=== PATIENT | male | born 1970 | race Caucasian/White ===

== ENCOUNTER 2017-11-24 06:30 | Emergency (ER) | payer MEDICAID ==
[~2017-11-24] VITALS: Ht 177.8 cm; Wt 94.3 kg
[2017-11-24 06:36] VITALS: BP 127/82
--- NOTE | 2017-11-24 06:36 | NUR ---
TO ER BED 1
--- NOTE | 2017-11-24 07:20 | NUR ---
patient is a 47 year-old male who was brought in for c/o right shoulder pain beginning last night. patient is alert and oriented. respirations are even and unlabored. patient denies ay cough, dyspnea, fever, chills, headache, vomiting or diarrhea. per patient no recent fall or inury to right shoulder. no abnormalities observed to right shoulder area. skin is w,d,i. awaiting md er evaluation. will continue to monitor.
--- NOTE | 2017-11-24 07:50 | NUR ---
Dr. Malin at bedside for examination.
--- NOTE | 2017-11-24 08:10 | NUR ---
patient is resting comfortably. wakens easily. respirations are even and unlabored. vss. will continue to monitor.
--- NOTE | 2017-11-24 08:15 | NUR ---
xray at bedside.
[2017-11-24 08:48] LABS: APPEARANCE,URINE CLEAR (CLEAR); BILIRUBIN,URINE NEGATIVE (NEGATIVE); BLOOD, URINE NEGATIVE (NEGATIVE); COLOR,URINE YELLOW (YELLOW); LEUKOCYTE ESTERASE ,URINE NEGATIVE (NEGATIVE); NITRITE, URINE NEGATIVE (NEGATIVE); PH,URINE 5.5 (5.0-9.0); UGLUCOSE NEGATIVE (NEGATIVE)
[2017-11-24] MEDS ORDERED: KETOROLAC 30 MG/ML VIAL IM ONE (08:50)
[2017-11-24 09:02] LABS: BARBITURATE, URINE NEG. ng/ml (NEG <=200); BENZODIAZEPINE, URINE NEG. ng/mL (NEG <=200); CANNABINOID, URINE NEG. ng/mL (NEG <=50); COCAINE, URINE NEG. ng/mL (NEG <=300); OPIATE, URINE NEG. ng/mL (NEG <=2000); PHENCYCLIDINE SCREEN,URINE NEG. ng/mL (NEG <=25)
[2017-11-24] MEDS ORDERED: ONDANSETRON 4 MG ODT PO ONE (09:55)
[2017-11-24 10:22] VITALS: BP 142/89
--- NOTE | 2017-11-24 10:22 | NUR ---
Patient discharged with v/s stable. Written and verbal after care instructions given and explained. Patient alert, oriented and verbalized understanding of instructions. Ambulatory with steady gait. All questions addressed prior to discharge. ID band removed. Patient advised to follow up with PMD. Rx of IBUPROFEN 600MG TAB & FLEXERIL 10MG TAB given. Patient educated on indication of medication including possible reaction and side effects. Opportunity to ask questions provided and answered.
== END 2017-11-24 10:22 | disposition home or self-care (01) ==
LOC: MED 06:30
DX: M25.511 Pain in right shoulder (principal)
CPT/HCPCS: 71045; 73030; 80305; 81003; 96372; 99285; J1885; Q0092; S0119

== ENCOUNTER 2018-01-19 05:00 | Emergency (ER) | payer MEDICAID ==
[~2018-01-19] VITALS: Ht 175.3 cm; Wt 86.2 kg
[2018-01-19 05:04] VITALS: BP 132/87
--- NOTE | 2018-01-19 05:20 | NUR ---
Pt ambulated to bed 10
--- NOTE | 2018-01-19 05:54 | NUR ---
47 Y/M C/O WEAKNESS, SOB, AND NAUSEA X3 HOURS. PT C/O S/S AT REST, RR EVEN, UNLABORED, SHALLOW, BL BS CLEAR THROUGHOUT. PT IS AA&OX4, BL EYES REDDENED TO SCLERA, PT ADMITS TO DRINKING ALCOHOL YESTERDAY [place] JUST STATES "TOO MUCH BUT ONLY BEER". ABD IS ROUND,SOFT, NON TENDER, ACTIVE BS X4. PT STATES THAT HE HAS FELT LIKE THIS BEFORE W/ ANXIETY ATTACKS. PMH HTN , ANXIETY
[2018-01-19 06:01] LABS: BASOPHILS % (AUTO) 0.9 % (0.0-2.0); EOSINOPHILS # (AUTO) 0.5 K/uL (0-0.4); EOSINOPHILS % (AUTO) 8.6 % (0.0-4.0); HEMATOCRIT 43.4 % (36-52); HEMOGLOBIN 14.7 g/dL (12.0-18.0); LYMPHOCYTES # (AUTO) 1.9 K/uL (2.0-11.5); LYMPHOCYTES % (AUTO) 33.2 % (20.5-51.1); MEAN CORPUSCULAR HEMOGLOBIN 29 pg (27-31); MEAN CORPUSCULAR HGB CONC 34 g/dL (33-37); MEAN CORPUSCULAR VOLUME 85.5 fL (80-94); MONOCYTES # (AUTO) 0.4 K/uL (0.8-1.0); MONOCYTES % (AUTO) 7.5 % (1.7-9.3); NEUTROPHILS # (AUTO) 2.9 K/uL (1.8-7.7); NEUTROPHILS % (AUTO) 49.8 % (42.2-75.2); PLATELET COUNT (AUTO) 205 K/uL (140-450); RED BLOOD CELL COUNT(AUTO) 5.08 MIL/uL (4.20-6.10); RED CELL DISTRIBUTION WIDTH 13.9 % (11.6-13.7); WHITE BLOOD COUNT (AUTO) 5.7 K/uL (4.8-10.8)
--- NOTE | 2018-01-19 06:08 | NUR ---
PT RESTING IN BED, PROVIDED W/ WATER, COMFORT NEEDS MET AT THIS TIME, VSS, WILL CONTINUE TO MONITOR.
[2018-01-19 06:12] LABS: APPEARANCE,URINE CLEAR (CLEAR); BILIRUBIN,URINE NEGATIVE (NEGATIVE); BLOOD, URINE NEGATIVE (NEGATIVE); COLOR,URINE YELLOW (YELLOW); LEUKOCYTE ESTERASE ,URINE NEGATIVE (NEGATIVE); NITRITE, URINE NEGATIVE (NEGATIVE); PH,URINE 5.5 (5.0-9.0); UGLUCOSE NEGATIVE (NEGATIVE)
[2018-01-19 06:26] LABS: POTASSIUM 3.4 mmol/L (3.5-5.1)
[2018-01-19 06:27] LABS: CARBON DIOXIDE 24.4 mmol/L (21-32); CREATININE 0.6 mg/dL (0.7-1.3)
[2018-01-19 06:35] LABS: TOTAL BILIRUBIN 0.2 mg/dL (0.0-1.0)
[2018-01-19 06:36] LABS: ALBUMIN 3.9 g/dL (3.4-5.0)
--- NOTE | 2018-01-19 07:02 | NUR ---
Pt report given to SHASTA. Transfer of care at this time.
[2018-01-19] MEDS ORDERED: ONDANSETRON 4 MG/2 ML VIAL ONE (07:29)
[2018-01-19] MEDS ORDERED: ONDANSETRON 4 MG/2 ML VIAL IVP ONE ×2 (07:35→09:35)
[2018-01-19] MEDS ORDERED: NACL 0.9% 1,000 ML IV ONE (07:35)
[2018-01-19 07:57] LABS: BARBITURATE, URINE NEG ng/ml (NEG <=200); BENZODIAZEPINE, URINE NEG ng/mL (NEG <=200); CANNABINOID, URINE NEG ng/mL (NEG <=50); COCAINE, URINE NEG ng/mL (NEG <=300); OPIATE, URINE NEG ng/mL (NEG <=2000); PHENCYCLIDINE SCREEN,URINE NEG ng/mL (NEG <=25)
[2018-01-19] MEDS ORDERED: LORazepam 2 MG/ML VIAL IVP ONE (09:20)
[2018-01-19 09:54] VITALS: BP 129/90
--- NOTE | 2018-01-19 09:55 | NUR ---
Patient discharged with v/s stable. Written and verbal after care instructions given and explained. Patient verbalized understanding. Ambulatory with steady gait. All questions addressed prior to discharge. Advised to follow up with PMD.
== END 2018-01-19 09:55 | disposition home or self-care (01) ==
LOC: MED 05:00
DX: F10.229 Alcohol dependence with intoxication, unspecified (principal); E87.6 Hypokalemia; E86.0 Dehydration; R42 Dizziness and giddiness; R53.1 Weakness; I10 Essential (primary) hypertension; F41.9 Anxiety disorder, unspecified
CPT/HCPCS: 36415; 80053; 80305; 81003; 85025; 96361; 96374; 96375; 96376; 99284; G0482; J2060; J2405; J7030

== ENCOUNTER 2018-02-22 09:27 | Emergency (ER) | payer MEDICAID ==
[~2018-02-22] VITALS: Ht 172.7 cm; Wt 92.1 kg
[2018-02-22 09:36] VITALS: BP 119/83
--- NOTE | 2018-02-22 09:40 | NUR ---
gave report to Janis AGUILERA
--- NOTE | 2018-02-22 09:45 | NUR ---
PATIENT AMBULATED TO BED 2.
[2018-02-22] MEDS ORDERED: MULTIVITAMIN-12 10 ML, THIAMINE 100 MG, MAGNESIUM SULFATE 50% 2,000 MG, FOLIC ACID 5 MG... IV ONE ×5 (09:50)
[2018-02-22] MEDS ORDERED: NACL 0.9% 1,000 ML IV ONE ×2 (09:50→10:35)
[2018-02-22] MEDS ORDERED: LORazepam 1 MG TAB PO ONE (09:50)
[2018-02-22] MEDS ORDERED: ONDANSETRON 4 MG/2 ML VIAL IVP ONE (09:50)
--- NOTE | 2018-02-22 09:50 | NUR ---
PT. CAME INTO THE ED W/ C/O WEAKNESS AND NAUSEA X 3 HRS. PT. IS AAOX4 . PT. RR EVEN AND UNLABORED. DENIES VOMITING AND DIAHRRHEA BUT DOES COMPLAIN OF NAUSEA X3 HOURS. PT STATES " I DRANK 15 BEERS LAST NIGHT AND THIS MORNING I WOKE UP FEELING WEAK AND NAUSEOUS" PT. DENIES ANY CHEST PAIN OR SOB AT THIS TIME. PT. DOES NOT HAVE ANY PAIN AT THIS TIME. PT. STATES " I FEEL HEART PALPITATIONS". VS ASSESSED AND STABLE, REFER TO VITALS. Soy MONTELONGO NOTIFIED. WILL CONTINUE TO MONITOR.
[2018-02-22] MEDS ORDERED: MULTIVITAMIN-12 10 ML, THIAMINE 100 MG, MAGNESIUM SULFATE 50% 2,000 MG, FOLIC ACID 5 MG... IV SCH ×5 (09:52)
[2018-02-22] MEDS ORDERED: FAMOTIDINE 20 MG/2 ML VIAL IVP ONE (09:55)
[2018-02-22 10:09] LABS: BASOPHILS # (AUTO) 0.1 K/uL (0.00-0.22); BASOPHILS % (AUTO) 1.1 % (0.0-2.0); EOSINOPHILS # (AUTO) 0.4 K/uL (0-0.4); EOSINOPHILS % (AUTO) 7.5 % (0.0-4.0); HEMATOCRIT 42.7 % (36-52); HEMOGLOBIN 14.5 g/dL (12.0-18.0); LYMPHOCYTES # (AUTO) 1.6 K/uL (2.0-11.5); MEAN CORPUSCULAR HEMOGLOBIN 29 pg (27-31); MEAN CORPUSCULAR HGB CONC 34 g/dL (33-37); MEAN CORPUSCULAR VOLUME 85.5 fL (80-94); MONOCYTES # (AUTO) 0.5 K/uL (0.8-1.0); MONOCYTES % (AUTO) 8.2 % (1.7-9.3); NEUTROPHILS # (AUTO) 3.1 K/uL (1.8-7.7); NEUTROPHILS % (AUTO) 55.2 % (42.2-75.2); PLATELET COUNT (AUTO) 180 K/uL (140-450); RED BLOOD CELL COUNT(AUTO) 4.99 MIL/uL (4.20-6.10); RED CELL DISTRIBUTION WIDTH 13.7 % (11.6-13.7); WHITE BLOOD COUNT (AUTO) 5.5 K/uL (4.8-10.8)
[2018-02-22 10:19] LABS: ANION GAP 13.2 (8-16); CARBON DIOXIDE 25.4 mmol/L (21-32); CREATININE 0.6 mg/dL (0.7-1.3); POTASSIUM 3.6 mmol/L (3.5-5.1)
[2018-02-22 10:25] LABS: ALBUMIN 3.9 g/dL (3.4-5.0); TOTAL BILIRUBIN 0.3 mg/dL (0.0-1.0)
--- NOTE | 2018-02-22 10:57 | NUR ---
PT. RESTING COMFORTABLY IN BED , RR EVEN AND UNLABORED, VSS. BED IN LOWEST POSITION WILL CONTINUE TO MONITOR.
--- NOTE | 2018-02-22 11:57 | NUR ---
PT. AMBULATED TO RESTROOM, STEADY GAIT, RR EVEN AND UNLABORED. PT. STATES " I FEEL BETTER NOW". WILL CONTINUE TO MONITOR.
[2018-02-22 12:06] VITALS: BP 111/74
== END 2018-02-22 12:06 | disposition home or self-care (01) ==
LOC: MED 09:27
DX: F10.129 Alcohol abuse with intoxication, unspecified (principal); I10 Essential (primary) hypertension; Y90.3 Blood alcohol level of 60-79 mg/100 ml
CPT/HCPCS: 36415; 80053; 81002; 83690; 84484; 85025; 93005; 96361; 96365; 96375; 99285; A9153; G0482; J2405; J3411; J3475; J3490; J7030

== ENCOUNTER 2018-03-08 08:04 | Emergency (ER) | payer MEDICAID ==
[~2018-03-08] VITALS: Ht 177.8 cm; Wt 86.2 kg
[2018-03-08 08:12] VITALS: BP 126/91
--- NOTE | 2018-03-08 08:12 | NUR ---
PT AMBULATED TO BED 7
--- NOTE | 2018-03-08 08:15 | NUR ---
47 /M BIB SELF FOR LEFT UPPER CHEST PAIN S/P DRINKING X YESTERDAY. DENIES N/V/D; SKIN IS PINK/WARM/DRY; AAOX4 WITH EVEN AND STEADY GAIT; LUNGS CLEAR BL. PT DENIES ANY FEVER OR COUGH AT THIS TIME; PATIENT STATES PAIN OF 7/10 AT THIS TIME. PATIENT POSITIONED FOR COMFORT; HOB ELEVATED; BEDRAILS UP X2; BED DOWN. ER MD MADE AWARE OF PT STATUS.
--- NOTE | 2018-03-08 08:23 | NUR ---
EKG AT BEDSIDE
--- NOTE | 2018-03-08 08:23 | NUR ---
Patient being evaluated by DR OLEA at bedside.
[2018-03-08] MEDS ORDERED: NACL 0.9% 1,000 ML IV SCH (08:30)
[2018-03-08] MEDS ORDERED: GLYCOPYRROLATE 0.2 MG/ML VIAL IV ONE (08:30)
[2018-03-08] MEDS ORDERED: FAMOTIDINE 20 MG/2 ML VIAL IVP ONE (08:30)
[2018-03-08] MEDS ORDERED: METOCLOPRAMIDE 10 MG/2 ML INJ VIAL IVP ONE (08:30)
[2018-03-08] MEDS ORDERED: diphenhydrAMINE 50 MG/ML VIAL IVP ONE (08:30)
[2018-03-08 08:58] LABS: BASOPHILS # (AUTO) 0.1 K/uL (0.00-0.22); EOSINOPHILS # (AUTO) 0.4 K/uL (0-0.4); EOSINOPHILS % (AUTO) 7.5 % (0.0-4.0); HEMATOCRIT 42.3 % (36-52); HEMOGLOBIN 14.8 g/dL (12.0-18.0); LYMPHOCYTES # (AUTO) 1.6 K/uL (2.0-11.5); LYMPHOCYTES % (AUTO) 30.2 % (20.5-51.1); MEAN CORPUSCULAR HEMOGLOBIN 29 pg (27-31); MEAN CORPUSCULAR HGB CONC 35 g/dL (33-37); MEAN CORPUSCULAR VOLUME 83.1 fL (80-94); MONOCYTES # (AUTO) 0.6 K/uL (0.8-1.0); MONOCYTES % (AUTO) 10.6 % (1.7-9.3); NEUTROPHILS # (AUTO) 2.7 K/uL (1.8-7.7); NEUTROPHILS % (AUTO) 50.7 % (42.2-75.2); PLATELET COUNT (AUTO) 182 K/uL (140-450); RED BLOOD CELL COUNT(AUTO) 5.09 MIL/uL (4.20-6.10); RED CELL DISTRIBUTION WIDTH 13.7 % (11.6-13.7); WHITE BLOOD COUNT (AUTO) 5.3 K/uL (4.8-10.8)
[2018-03-08 09:00] LABS: APPEARANCE,URINE CLEAR (CLEAR); BILIRUBIN,URINE NEGATIVE (NEGATIVE); BLOOD, URINE NEGATIVE (NEGATIVE); COLOR,URINE YELLOW (YELLOW); LEUKOCYTE ESTERASE ,URINE NEGATIVE (NEGATIVE); NITRITE, URINE NEGATIVE (NEGATIVE); UGLUCOSE NEGATIVE (NEGATIVE)
[2018-03-08 09:06] LABS: BARBITURATE, URINE NEG. ng/ml (NEG <=200); BENZODIAZEPINE, URINE NEG. ng/mL (NEG <=200); CANNABINOID, URINE NEG. ng/mL (NEG <=50); COCAINE, URINE NEG. ng/mL (NEG <=300); OPIATE, URINE NEG. ng/mL (NEG <=2000); PHENCYCLIDINE SCREEN,URINE NEG. ng/mL (NEG <=25)
--- NOTE | 2018-03-08 09:07 | NUR ---
Patient appears to be resting comfortably in bed. BP128/96, Respirations even and unlabored.WILL CONTINUE TO MONITOR Addendum: 03/08/18 at 0927 by [email or web address] DENIES CHEST PAIN AT THIS TIME.
[2018-03-08 09:08] LABS: ANION GAP 14.3 (8-16); CARBON DIOXIDE 26.3 mmol/L (21-32); CREATININE 0.7 mg/dL (0.7-1.3); POTASSIUM 3.6 mmol/L (3.5-5.1)
[2018-03-08 09:09] LABS: AMYLASE 54 U/L (25-115); LIPASE 165 U/L (73-393)
[2018-03-08 09:14] LABS: ALBUMIN 3.9 g/dL (3.4-5.0); TOTAL BILIRUBIN 0.3 mg/dL (0.0-1.0)
--- NOTE | 2018-03-08 09:50 | NUR ---
Patient being reevaluated by DR OLEA at bedside.
[2018-03-08 10:52] VITALS: BP 120/90
--- NOTE | 2018-03-08 10:52 | NUR ---
Patient discharged with v/s stable. Written and verbal after care instructions given and explained. Patient alert, oriented and verbalized understanding of instructions. Ambulatory with steady gait. All questions addressed prior to discharge. ID band removed. Patient advised to follow up with PMD. Rx of vistaril given. Patient educated on indication of medication including possible reaction and side effects. Opportunity to ask questions provided and answered.
== END 2018-03-08 10:52 | disposition home or self-care (01) ==
LOC: MED 08:04
DX: F10.129 Alcohol abuse with intoxication, unspecified (principal); I10 Essential (primary) hypertension; F41.9 Anxiety disorder, unspecified; F17.200 Nicotine dependence, unspecified, uncomplicated
CPT/HCPCS: 36415; 71045; 80053; 80305; 81003; 82150; 83690; 84484; 85025; 93005; 96374; 96375; 99285; G0482; J1200; J2765; J3490; J7030

== ENCOUNTER 2018-04-12 09:26 | Emergency (ER) | payer MEDICAID ==
[~2018-04-12] VITALS: Ht 175.3 cm; Wt 79.4 kg
[2018-04-12 09:35] VITALS: BP 152/88
--- NOTE | 2018-04-12 09:35 | NUR ---
Patient ambulated to bed 8. RN evaluating patient at bedside.
--- NOTE | 2018-04-12 09:45 | NUR ---
PATIENT PRESENTS TO ED WITH THROAT PAIN AND ANXIETY X THIS AM . PT STATES HE DRANK 20 BEERS LAST NIGHT---FULL CLEAR SPEECH, AMBULATORY WITH STEADY GAIT, NO TREMORS NOTED---DENIES VISUAL/AUDITORY HALLUCINATION . DENIES N/V/D; SKIN IS PINK/WARM/DRY; AAOX4 WITH EVEN AND STEADY GAIT; LUNGS CLEAR BL; HR EVEN AND REGULAR; PT DENIES ANY FEVER, CP, SOB, OR COUGH AT THIS TIME; PATIENT STATES PAIN OF 8/10 AT THIS TIME; VSS; PATIENT POSITIONED FOR COMFORT; HOB ELEVATED; BEDRAILS UP X2; BED DOWN. ER MD MADE AWARE OF PT STATUS.
--- NOTE | 2018-04-12 09:52 | NUR ---
Dr. Ness evaluating patient at bedside.
--- NOTE | 2018-04-12 10:00 | NUR ---
RESTING WITH OU CLOSED, NO S/S RESP DISTRESS NOTED AT THIS TIME; NO ACCESSORY MUSCLE USE NOTED NO GRIMACE NO MOAN
[2018-04-12] MEDS ORDERED: FAMOTIDINE 20 MG/2 ML VIAL IVP ONE (10:10)
[2018-04-12] MEDS ORDERED: diphenhydrAMINE 50 MG/ML VIAL IVP ONE (10:10)
[2018-04-12] MEDS ORDERED: PROMETHAZINE 25 MG/ML VIAL IM ONE (10:10)
[2018-04-12] MEDS ORDERED: NACL 0.9% 1,000 ML IV ONE (11:10)
[2018-04-12 11:27] LABS: WHITE BLOOD COUNT (AUTO) 4.7 K/uL (4.8-10.8)
[2018-04-12 11:28] LABS: BASOPHILS % (AUTO) 3.5 % (0.0-2.0); HEMATOCRIT 44.1 % (36-52); HEMOGLOBIN 14.7 g/dL (12.0-18.0); MEAN CORPUSCULAR HEMOGLOBIN 29 pg (27-31); MEAN CORPUSCULAR HGB CONC 33 g/dL (33-37); NEUTROPHILS % (AUTO) 51.6 % (42.2-75.2); PLATELET COUNT (AUTO) 192 K/uL (140-450); RED BLOOD CELL COUNT(AUTO) 5.13 MIL/uL (4.20-6.10); RED CELL DISTRIBUTION WIDTH 12.7 % (11.6-13.7)
[2018-04-12 11:29] LABS: BASOPHILS # (AUTO) 3.5 K/uL (0.00-0.22); EOSINOPHILS # (AUTO) 0.3 K/uL (0-0.4); LYMPHOCYTES # (AUTO) 1.4 K/uL (2.0-11.5); LYMPHOCYTES % (AUTO) 29.5 % (20.5-51.1); MONOCYTES # (AUTO) 0.4 K/uL (0.8-1.0); MONOCYTES % (AUTO) 9.4 % (1.7-9.3); NEUTROPHILS # (AUTO) 2.4 K/uL (1.8-7.7)
[2018-04-12 11:39] LABS: ALBUMIN 4.2 g/dL (3.4-5.0); ANION GAP 11.1 (8-16); CARBON DIOXIDE 25.8 mmol/L (21-32); CREATININE 0.8 mg/dL (0.7-1.3); POTASSIUM 3.9 mmol/L (3.5-5.1); TOTAL BILIRUBIN 0.3 mg/dL (0.0-1.0)
--- NOTE | 2018-04-12 12:00 | NUR ---
UP TO RESTROOM STEADY GAIT--DENIES PAIN ADMITS FEELING LESS ANXIOUS
[2018-04-12 12:01] LABS: CKMB RELATIVE INDEX 0.7 (0.0-2.5); CREATINE KINASE MB 2.4 ng/mL (0-3.6)
--- NOTE | 2018-04-12 13:20 | NUR ---
LAYING ON LEFT SIDE WITH BLANKET OVER UP TO SHOULDERS---V/S/S NO ACCESSORY MUSCLE USE NO GRIMACE NO MOAN--- AWAITS DISPO
[2018-04-12 14:02] LABS: APPEARANCE,URINE CLEAR (CLEAR); BILIRUBIN,URINE NEGATIVE (NEGATIVE); BLOOD, URINE NEGATIVE (NEGATIVE); COLOR,URINE YELLOW (YELLOW); LEUKOCYTE ESTERASE ,URINE NEGATIVE (NEGATIVE); NITRITE, URINE NEGATIVE (NEGATIVE); UGLUCOSE NEGATIVE (NEGATIVE)
[2018-04-12 14:15] LABS: BARBITURATE, URINE NEG. ng/ml (NEG <=200); BENZODIAZEPINE, URINE NEG. ng/mL (NEG <=200); CANNABINOID, URINE NEG. ng/mL (NEG <=50); COCAINE, URINE NEG. ng/mL (NEG <=300); OPIATE, URINE NEG. ng/mL (NEG <=2000); PHENCYCLIDINE SCREEN,URINE NEG. ng/mL (NEG <=25)
[2018-04-12 14:49] VITALS: BP 138/71
== END 2018-04-12 14:52 | disposition home or self-care (01) ==
LOC: MED 09:26
DX: F10.229 Alcohol dependence with intoxication, unspecified (principal); K29.20 Alcoholic gastritis without bleeding; Y90.9 Presence of alcohol in blood, level not specified; I10 Essential (primary) hypertension
CPT/HCPCS: 36415; 80053; 80305; 81003; 82550; 82553; 85025; 96361; 96372; 96374; 96375; 99284; G0482; J1200; J2550; J3490

== ENCOUNTER 2018-05-25 05:55 | Emergency (ER) | payer MEDICAID ==
[~2018-05-25] VITALS: Ht 175.3 cm; Wt 90.7 kg
[2018-05-25 06:00] VITALS: BP 141/98
--- NOTE | 2018-05-25 06:00 | NUR ---
PT PRESENTS TO ED WITH NAUSEA AND ETOH. PT STATES AROLDO-DRINKING X2 DAYS. PT SMELLS OF LIQUOR AND BEER. A&OX4. VSS. PT BROUGHT HIMSELF TO ED. HE HAD FAMILY DRIVE HIM. POSITIONED IN BED FOR COMFORT. SIDE RAILS UP X2. FALL RISK INITIATED WITH BAND. ER MD AWARE. CONTINUE TO MONITOR.
--- NOTE | 2018-05-25 06:00 | NUR ---
PATIENT TO ER BED 8.
[2018-05-25 07:03] VITALS: BP 141/98
== END 2018-05-25 07:03 | disposition home or self-care (01) ==
LOC: MED 05:55
DX: F10.129 Alcohol abuse with intoxication, unspecified (principal); F41.9 Anxiety disorder, unspecified; R53.1 Weakness; R42 Dizziness and giddiness; E11.9 Type 2 diabetes mellitus without complications; I10 Essential (primary) hypertension
CPT/HCPCS: 99283

== ENCOUNTER 2018-06-21 12:53 | Emergency (ER) | payer MEDICAID ==
[~2018-06-21] VITALS: Ht 175.3 cm; Wt 90.9 kg
[2018-06-21 13:03] VITALS: BP 124/100
[2018-06-21] MEDS ORDERED: NACL 0.9% 1,000 ML IV ONE ×2 (13:43→13:50)
[2018-06-21] MEDS ORDERED: PROMETHAZINE 25 MG/ML VIAL IM ONE (13:45)
[2018-06-21 14:26] LABS: BASOPHILS % (AUTO) 0.4 % (0.0-2.0); EOSINOPHILS # (AUTO) 0.2 K/uL (0-0.4); EOSINOPHILS % (AUTO) 2.4 % (0.0-4.0); HEMATOCRIT 44.4 % (36-52); HEMOGLOBIN 15.1 g/dL (12.0-18.0); LYMPHOCYTES # (AUTO) 0.7 K/uL (2.0-11.5); LYMPHOCYTES % (AUTO) 7.3 % (20.5-51.1); MEAN CORPUSCULAR HEMOGLOBIN 29 pg (27-31); MEAN CORPUSCULAR HGB CONC 34 g/dL (33-37); MONOCYTES # (AUTO) 0.5 K/uL (0.8-1.0); MONOCYTES % (AUTO) 5.6 % (1.7-9.3); NEUTROPHILS # (AUTO) 7.7 K/uL (1.8-7.7); NEUTROPHILS % (AUTO) 84.3 % (42.2-75.2); PLATELET COUNT (AUTO) 199 K/uL (140-450); RED BLOOD CELL COUNT(AUTO) 5.16 MIL/uL (4.20-6.10); RED CELL DISTRIBUTION WIDTH 13.8 % (11.6-13.7); WHITE BLOOD COUNT (AUTO) 9.2 K/uL (4.8-10.8)
[2018-06-21 14:41] LABS: ANION GAP 11.8 (8-16); CARBON DIOXIDE 27.8 mmol/L (21-32); CREATININE 0.7 mg/dL (0.7-1.3); POTASSIUM 3.6 mmol/L (3.5-5.1)
[2018-06-21 14:46] LABS: ALBUMIN 4.2 g/dL (3.4-5.0); TOTAL BILIRUBIN 0.4 mg/dL (0.0-1.0)
[2018-06-21 14:52] LABS: APPEARANCE,URINE CLEAR (CLEAR); BILIRUBIN,URINE NEGATIVE (NEGATIVE); BLOOD, URINE TRACE-I (NEGATIVE); COLOR,URINE YELLOW (YELLOW); LEUKOCYTE ESTERASE ,URINE NEGATIVE (NEGATIVE); NITRITE, URINE NEGATIVE (NEGATIVE); UGLUCOSE NEGATIVE (NEGATIVE)
[2018-06-21 15:02] LABS: BARBITURATE, URINE NEG. ng/ml (NEG <=200); BENZODIAZEPINE, URINE NEG. ng/mL (NEG <=200); CANNABINOID, URINE NEG. ng/mL (NEG <=50); COCAINE, URINE NEG. ng/mL (NEG <=300); OPIATE, URINE NEG. ng/mL (NEG <=2000); PHENCYCLIDINE SCREEN,URINE NEG. ng/mL (NEG <=25)
[2018-06-21] MEDS ORDERED: ONDANSETRON 4 MG ODT ONE (15:12)
[2018-06-21 15:57] VITALS: BP 117/89
== END 2018-06-21 15:55 | disposition home or self-care (01) ==
LOC: MED 12:53
DX: F10.10 Alcohol abuse, uncomplicated (principal); E11.9 Type 2 diabetes mellitus without complications; I10 Essential (primary) hypertension
CPT/HCPCS: 36415; 71045; 80053; 80305; 81003; 85025; 96360; 96361; 96372; 99285; G0482; J2550; J7030; Q0092; S0119

== ENCOUNTER 2018-10-05 05:35 | Emergency (ER) | payer MEDICAID ==
[~2018-10-05] VITALS: Ht 175.3 cm; Wt 90.7 kg
[2018-10-05 05:41] VITALS: BP 132/80
--- NOTE | 2018-10-05 05:41 | NUR ---
TO BED # 7 AMBULATORY, REPORT GIVEN TO CYNDEE AGUILERA
--- NOTE | 2018-10-05 05:50 | NUR ---
47/M PRESENTS TO ED, C/O CHEST TIGHTNESS/PALPITATIONS, WEAKNESS, DIZZINESS, NAUSEA, REPORTED SOB, SINCE THIS AM. PT STATED THAT HE HAS BEEN BINGE DRINKING (20 BEERS/DAY) THIS SAT AND SUN, LAST DRINK 8 HRS AGO. PT AOX4, GCS 15, RR EVEN AND UNLABORED. LUNG SOUNDS CLEAR BL. BS ACTIVE X4, ABD SOFT ROUND SLIGHT DIFFUSE TENDERNESS. HX HTN, ETOH ABUSE RX METOPROLOL, ATIVAN
--- NOTE | 2018-10-05 05:52 | NUR ---
Dr. Little evaluating patient at bedside.
[2018-10-05] MEDS ORDERED: KETOROLAC 30 MG/ML VIAL IVP ONE (05:55)
[2018-10-05] MEDS ORDERED: NACL 0.9% 1,000 ML IV ONE (05:55)
--- NOTE | 2018-10-05 06:01 | NUR ---
EKG PERFORMED AT BEDSIDE WITH RN PRESENT. PT COVERED IN GOWN DURING PROCEDURE
--- NOTE | 2018-10-05 06:05 | NUR ---
X-Ray at bedside.
[2018-10-05 06:27] LABS: BASOPHILS # (AUTO) 0.1 K/uL (0.00-0.22); BASOPHILS % (AUTO) 0.9 % (0.0-2.0); EOSINOPHILS # (AUTO) 0.3 K/uL (0-0.4); EOSINOPHILS % (AUTO) 5.5 % (0.0-4.0); HEMATOCRIT 43.3 % (36-52); HEMOGLOBIN 14.5 g/dL (12.0-18.0); LYMPHOCYTES # (AUTO) 1.6 K/uL (2.0-11.5); LYMPHOCYTES % (AUTO) 28.3 % (20.5-51.1); MEAN CORPUSCULAR HEMOGLOBIN 28 pg (27-31); MEAN CORPUSCULAR HGB CONC 33 g/dL (33-37); MEAN CORPUSCULAR VOLUME 85.1 fL (80-94); MONOCYTES # (AUTO) 0.5 K/uL (0.8-1.0); NEUTROPHILS # (AUTO) 3.1 K/uL (1.8-7.7); NEUTROPHILS % (AUTO) 56.3 % (42.2-75.2); PLATELET COUNT (AUTO) 220 K/uL (140-450); RED BLOOD CELL COUNT(AUTO) 5.08 MIL/uL (4.20-6.10); RED CELL DISTRIBUTION WIDTH 13.4 % (11.6-13.7); WHITE BLOOD COUNT (AUTO) 5.5 K/uL (4.8-10.8)
[2018-10-05 06:51] LABS: ANION GAP 14.2 (8-16); CARBON DIOXIDE 28.2 mmol/L (21-32); CREATININE 0.6 mg/dL (0.7-1.3); POTASSIUM 3.4 mmol/L (3.5-5.1); TOTAL BILIRUBIN 0.3 mg/dL (0.0-1.0)
[2018-10-05 06:52] LABS: ALBUMIN 3.9 g/dL (3.4-5.0)
[2018-10-05] MEDS ORDERED: LORazepam 1 MG TAB PO ONE (07:00)
--- NOTE | 2018-10-05 07:14 | NUR ---
Pt report given to WILLY HUTTON. Transfer of care at this time.
--- NOTE | 2018-10-05 07:15 | NUR ---
RECEIVED REPORT WILLY COTTER, PATIENT IN RESTROOM.
[2018-10-05 07:34] VITALS: BP 132/80
== END 2018-10-05 07:34 | disposition home or self-care (01) ==
LOC: MED 05:35
DX: R00.2 Palpitations (principal); F10.10 Alcohol abuse, uncomplicated; F41.9 Anxiety disorder, unspecified; E11.9 Type 2 diabetes mellitus without complications; I10 Essential (primary) hypertension
CPT/HCPCS: 36415; 71045; 80053; 84484; 85025; 93005; 96374; 99284; J1885; J7030

== ENCOUNTER 2019-01-04 10:06 | Emergency (ER) | payer MEDICAID ==
[~2019-01-04] VITALS: Ht 180.3 cm; Wt 90.3 kg
[2019-01-04 10:13] VITALS: BP 141/95
--- NOTE | 2019-01-04 13:10 | NUR ---
AMBULATORY WITH STEADY GAIT, C/O ANXIETY, GENERAL MALAISE NO TREMORS NOTED--FULL CLEAR SPEECH
--- NOTE | 2019-01-04 14:29 | NUR ---
PT AMB TO ER CHAIR E
[2019-01-04] MEDS ORDERED: NACL 0.9% 1,000 ML IV SCH (15:04)
[2019-01-04] MEDS ORDERED: ONDANSETRON 4 MG ODT PO ONE (15:35)
--- NOTE | 2019-01-04 15:48 | NUR ---
VSS AT THIS TIME. PT SITTING IN CHAIR. AA0X4.
--- NOTE | 2019-01-04 15:58 | NUR ---
LAB AT BEDSIDE-BLOOD SENT TO LAB
--- NOTE | 2019-01-04 16:30 | NUR ---
PT SITTING IN CHAIR. AA0X4.
[2019-01-04 17:53] VITALS: BP 125/87
== END 2019-01-04 17:53 | disposition home or self-care (01) ==
LOC: MED 10:06
DX: F10.239 Alcohol dependence with withdrawal, unspecified (principal); E11.9 Type 2 diabetes mellitus without complications; I10 Essential (primary) hypertension; F41.9 Anxiety disorder, unspecified; Y90.1 Blood alcohol level of 20-39 mg/100 ml
CPT/HCPCS: 36415; 99283; G0482; J7030; Q0162

== ENCOUNTER 2019-02-15 16:32 | Emergency (ER) | payer MEDICAID ==
[~2019-02-15] VITALS: Ht 180.3 cm; Wt 91.4 kg
[2019-02-15 16:37] VITALS: BP 128/87
--- NOTE | 2019-02-15 16:56 | NUR ---
PT STATES HE HAS BEEN DRINKING "TOO MUCH" FOR 3 DAYS, DENIES DRINKING TODAY, STATES LAST DRINK WAS YESTERDAY AT 14:00. PT BREATH SMELLS OF ALCOHOL. PT REPORTS NAUSEA, DIZINESS, AND CP WITH PALPITATIONS. PT ALSO REPORTS CONGESTION AND CHEST PAIN. DENIES D; AAOX4 WITH EVEN AND STEADY GAIT; HR EVEN AND REGULAR; PT DENIES ANY FEVER, SOB, OR COUGH AT THIS TIME; PATIENT STATES CHEST PAIN AND HEADACHE OF 8/10 AT THIS TIME; VSS; PATIENT POSITIONED FOR COMFORT; HOB ELEVATED; BEDRAILS UP X2; BED DOWN. ER MD MADE AWARE OF PT STATUS.
--- NOTE | 2019-02-15 17:59 | NUR ---
Dr. Lopez evaluating patient at bedside.
[2019-02-15] MEDS ORDERED: NACL 0.9% 1,000 ML IV ONE (18:00)
[2019-02-15] MEDS ORDERED: ONDANSETRON 4 MG/2 ML VIAL IVP ONE (18:00)
[2019-02-15] MEDS ORDERED: LORazepam 2 MG/ML VIAL IVP ONE (18:40)
--- NOTE | 2019-02-15 18:50 | NUR ---
Pt C/O shaking and anxiety and was given Ativan 1 mg IVP. Pt's BP 122/80, HR 74.
--- NOTE | 2019-02-15 19:03 | NUR ---
REPORT RECIEVED AMRIT STRATTON RN
--- NOTE | 2019-02-15 19:03 | NUR ---
PT VSS, BP 122/67, HR 105. PT STATES FEELS MUCH BETTER, NO SHAKING AND AXIETY. REPORT GIVEN TO WILLY PARIS.
--- NOTE | 2019-02-15 19:10 | NUR ---
PT GIVEN URINAL. PT AA0X4.
[2019-02-15] MEDS ORDERED: FOLIC ACID 5 MG, MULTIVITAMIN-12 10 ML, THIAMINE 100 MG, MAGNESIUM SULFATE 50% 2,000 MG... IV ONE ×5 (19:34)
--- NOTE | 2019-02-15 19:44 | NUR ---
PT GIVEN FOLATE AND THIAMINE IM L DELTOID. MAGNESIUM SULFATE RUNNING IV PIGGYBACK WITH NS AT 25 MLS/HR. MVI MIXED IN 1000 ML NS BAG AND TO RUN AT 250 MLS/HR AFTER MAGNESIUM SULFATE FINISHES.
[2019-02-15] MEDS ORDERED: THIAMINE 200 MG/2 ML VIAL ONE (19:49)
[2019-02-15] MEDS ORDERED: MULTIVITAMIN-12 10 ML VIAL IV ONE (19:49)
[2019-02-15] MEDS ORDERED: FOLIC ACID 5 MG/ML SYR ONE ×2 (19:49→19:58)
[2019-02-15] MEDS ORDERED: MAG SULF 2000 MG/WATER PREMIX 50 ML IV ONE (20:00)
--- NOTE | 2019-02-15 21:00 | NUR ---
PT SLEEPING IN BED, AROUSABLE TO NAME.
--- NOTE | 2019-02-15 21:07 | NUR ---
ASSUMED CARE OF PT FROM WILLY PARIS
--- NOTE | 2019-02-15 21:07 | NUR ---
REPORT GIVEN TO LANCE AGUILERA
--- NOTE | 2019-02-15 21:20 | NUR ---
PT VERBALIZING DESIRE TO LEAVE. PT IS ALERT TO NAME, BIRTHDAY, PLACE, AND EVENT. D/C ORDERS RECEIVED.
--- NOTE | 2019-02-15 21:25 | NUR ---
IV removed, catheter intact and site benign. Applied folded 4x4 gauze and tape to stop bleeding.
[2019-02-15 21:30] VITALS: BP 126/84
== END 2019-02-15 21:29 | disposition home or self-care (01) ==
LOC: MED 16:32
DX: F10.129 Alcohol abuse with intoxication, unspecified (principal); R07.89 Other chest pain; E11.9 Type 2 diabetes mellitus without complications; I10 Essential (primary) hypertension; F41.9 Anxiety disorder, unspecified
CPT/HCPCS: 36415; 81002; 93005; 96361; 96365; 96366; 96375; 99284; A9153; G0482; J2060; J2405; J3411; J3475; J3490; J7030

== ENCOUNTER 2019-04-19 10:24 | Emergency (ER) | payer MEDICAID ==
[~2019-04-19] VITALS: Ht 175.3 cm; Wt 89.8 kg
[2019-04-19 10:50] VITALS: BP 128/88
[2019-04-19] MEDS ORDERED: NACL 0.9% 500 ML IV ONE (10:58)
[2019-04-19] MEDS ORDERED: ONDANSETRON 4 MG/2 ML VIAL IVP ONE (11:00)
[2019-04-19 11:43] LABS: BASOPHILS % (AUTO) 0.7 % (0.0-2.0); EOSINOPHILS # (AUTO) 0.2 K/uL (0-0.4); EOSINOPHILS % (AUTO) 4.2 % (0.0-4.0); HEMATOCRIT 43.1 % (36-52); HEMOGLOBIN 14.5 g/dL (12.0-18.0); LYMPHOCYTES # (AUTO) 1.4 K/uL (2.0-11.5); LYMPHOCYTES % (AUTO) 27.2 % (20.5-51.1); MEAN CORPUSCULAR HEMOGLOBIN 29 pg (27-31); MEAN CORPUSCULAR HGB CONC 34 g/dL (33-37); MEAN CORPUSCULAR VOLUME 85.4 fL (80-94); MONOCYTES # (AUTO) 0.3 K/uL (0.8-1.0); MONOCYTES % (AUTO) 5.8 % (1.7-9.3); NEUTROPHILS # (AUTO) 3.2 K/uL (1.8-7.7); NEUTROPHILS % (AUTO) 62.1 % (42.2-75.2); PLATELET COUNT (AUTO) 201 K/uL (140-450); RED BLOOD CELL COUNT(AUTO) 5.04 MIL/uL (4.20-6.10); RED CELL DISTRIBUTION WIDTH 13.6 % (11.6-13.7); WHITE BLOOD COUNT (AUTO) 5.1 K/uL (4.8-10.8)
[2019-04-19 12:04] LABS: ANION GAP 12.5 (8-16); CARBON DIOXIDE 27.2 mmol/L (21-32); CREATININE 0.7 mg/dL (0.7-1.3); POTASSIUM 3.7 mmol/L (3.5-5.1)
[2019-04-19 12:15] LABS: ALBUMIN 3.8 g/dL (3.4-5.0); TOTAL BILIRUBIN 0.4 mg/dL (0.0-1.0)
[2019-04-19 13:26] VITALS: BP 128/88
== END 2019-04-19 13:19 | disposition home or self-care (01) ==
LOC: MED 10:24
DX: F10.20 Alcohol dependence, uncomplicated (principal); R10.84 Generalized abdominal pain; R11.0 Nausea; I10 Essential (primary) hypertension; E11.9 Type 2 diabetes mellitus without complications; Y90.9 Presence of alcohol in blood, level not specified
CPT/HCPCS: 36415; 80053; 83690; 85025; 96374; 96375; 99283; G0482; J2405; J7030

== ENCOUNTER 2019-06-13 18:17 | Emergency (ER) | payer MEDICAID ==
[~2019-06-13] VITALS: Ht 177.8 cm; Wt 77.1 kg
[2019-06-13 18:24] VITALS: BP 137/91
--- NOTE | 2019-06-13 19:10 | NUR ---
PT TO ER BED 6
--- NOTE | 2019-06-13 19:15 | NUR ---
48Y MALE, PRESENTED TO ED, C/O GENERALIZED BODY WEAKNESS SINCE THIS MORNING, PT ADMITS BINGE DRINKING LAST NIGHT 18PACK OF BEERS, C/O NAUSEA AND VOMITING THIS AM. NO C/O PAIN, NO TREMORS NOTED AT THIS TIME. PT AAOX4, RR EVEN UNLABORED, GCS 15 EDMD MADE AWARE, WILL CONTINUE TO MONITOR CLOSELY. BED LOCKED IN LOWEST POSITION, SIDERAIL UP X1. HX--HTN, ALCOHOLISM RX--METOPROLOL, ATIVAN
[2019-06-13 19:41] LABS: BASOPHILS # (AUTO) 0.1 K/uL (0.00-0.22); BASOPHILS % (AUTO) 0.8 % (0.0-2.0); EOSINOPHILS # (AUTO) 0.4 K/uL (0-0.4); EOSINOPHILS % (AUTO) 5.9 % (0.0-4.0); HEMATOCRIT 45.3 % (36-52); LYMPHOCYTES # (AUTO) 1.4 K/uL (2.0-11.5); LYMPHOCYTES % (AUTO) 20.7 % (20.5-51.1); MEAN CORPUSCULAR HEMOGLOBIN 29 pg (27-31); MEAN CORPUSCULAR HGB CONC 33 g/dL (33-37); MONOCYTES # (AUTO) 0.5 K/uL (0.8-1.0); MONOCYTES % (AUTO) 7.3 % (1.7-9.3); NEUTROPHILS # (AUTO) 4.4 K/uL (1.8-7.7); NEUTROPHILS % (AUTO) 65.3 % (42.2-75.2); PLATELET COUNT (AUTO) 182 K/uL (140-450); RED BLOOD CELL COUNT(AUTO) 5.21 MIL/uL (4.20-6.10); RED CELL DISTRIBUTION WIDTH 13.5 % (11.6-13.7); WHITE BLOOD COUNT (AUTO) 6.8 K/uL (4.8-10.8)
[2019-06-13] MEDS ORDERED: MULTIVITAMIN-12 10 ML, THIAMINE 100 MG, FOLIC ACID 1 MG, MAGNESIUM SULFATE 50% 2,000 MG... IV ONE ×5 (20:15)
[2019-06-13 20:16] LABS: ALBUMIN 4.1 g/dL (3.4-5.0); ANION GAP 12.1 (8-16); ASPARTATE AMINOTRANSFERASE 23 U/L (15-37); CARBON DIOXIDE 29.5 mmol/L (21-32); CHLORIDE 101 mmol/L (98-107); CREATININE 0.7 mg/dL (0.7-1.3); GFR ARICAN-AMERICAN 155 mL/min (>90); GLUCOSE 94 mg/dL (74-106); POTASSIUM 3.6 mmol/L (3.5-5.1); SODIUM SERUM 139 mmol/L (136-145); TOTAL BILIRUBIN 0.5 mg/dL (0.0-1.0); UREA NITROGEN, BLOOD 6 mg/dL (7-18)
[2019-06-13 20:17] LABS: ACETAMINOPHEN < 0.5 ug/ml (10-30); SALICYLATE < 2.8 mg/dL (2.8-20.0)
[2019-06-13] MEDS ORDERED: FOLIC ACID 5 MG/ML SYR ONE (20:18)
[2019-06-13] MEDS ORDERED: MULTIVITAMIN-12 10 ML VIAL IV ONE (20:18)
[2019-06-13] MEDS ORDERED: THIAMINE 200 MG/2 ML VIAL ONE (20:18)
[2019-06-13] MEDS ORDERED: MAG SULF 2000 MG/WATER PREMIX 50 ML IV ONE (20:25)
[2019-06-13 22:17] VITALS: BP 123/78
--- NOTE | 2019-06-13 22:17 | NUR ---
DISCHARGE PAPERS GIVEN TO PT. PT STATES RELIEF. ALERT TO NAME, PLACE, TIME AND EVEN.T VSS. RX OF XANAX GIVEN. SIDE EFFECTS EXPLAINED. INSTRUCTED TO F/U WITH PCP AND WHEN TO RETURN TO ER. PT VERBALLIZED UNDERSTANDING OF DC INSTRUCTIONS. ALL QUESTIONS ANSWERED.
[2019-06-13 22:37] LABS: BARBITURATE, URINE NEG. ng/ml (NEG <=200); BENZODIAZEPINE, URINE NEG. ng/mL (NEG <=200); CANNABINOID, URINE NEG. ng/mL (NEG <=50); COCAINE, URINE NEG. ng/mL (NEG <=300); OPIATE, URINE NEG. ng/mL (NEG <=2000); PHENCYCLIDINE SCREEN,URINE NEG. ng/mL (NEG <=25)
== END 2019-06-13 22:17 | disposition home or self-care (01) ==
LOC: MED 18:17
DX: F10.10 Alcohol abuse, uncomplicated (principal); E11.9 Type 2 diabetes mellitus without complications; I10 Essential (primary) hypertension
CPT/HCPCS: 36415; 80053; 80305; 81002; 83690; 85025; 85610; 96365; 99283; A9153; G0480; G0482; J3411; J3475; J3490

== ENCOUNTER 2021-03-28 21:45 | Emergency (ER) | payer MEDICAID ==
[~2021-03-28] VITALS: Ht 175.3 cm; Wt 92.1 kg
[2021-03-28 21:57] VITALS: BP 122/87
[2021-03-29] MEDS ORDERED: methylPREDNISolone SS 125 MG/2 ML VIAL IVP ONE (00:35)
[2021-03-29] MEDS ORDERED: IBUPROFEN 400 MG TAB PO ONE (00:35)
[2021-03-29] MEDS ORDERED: FAMOTIDINE 20 MG TAB PO ONE (00:35)
[2021-03-29] MEDS ORDERED: PRED20TA6 PO (03:05)
[2021-03-29] MEDS ORDERED: IBUP-2218 PO (03:07)
[2021-03-29 03:31] VITALS: BP 119/78
== END 2021-03-29 03:31 | disposition home or self-care (01) ==
LOC: MED 21:45
DX: K14.8 Other diseases of tongue (principal); R07.9 Chest pain, unspecified; E11.9 Type 2 diabetes mellitus without complications; I10 Essential (primary) hypertension
CPT/HCPCS: 71045; 93005; 96374; 99284; J2930; Q0163; 96372

== ENCOUNTER 2023-01-11 06:27 | Emergency (ER) | payer MEDICAID ==
[~2023-01-11] VITALS: Ht 175.3 cm; Wt 99.3 kg
[~2023-01-11 06:27] MED LIST: IBUP-2218 PO; PRED20TA6 PO
[2023-01-11 06:32] VITALS: BP 119/86
--- NOTE | 2023-01-11 06:39 | NUR ---
PT TO BED 11
--- NOTE | 2023-01-11 06:39 | NUR ---
Patient taken to bed 9.
--- NOTE | 2023-01-11 06:46 | NUR ---
Va Underwriter # [id number] C/O left chest pain x last night. Patient reporte, left chest pain and palpitation since last night. PMHx: HTN, Anxiety, HLD
--- NOTE | 2023-01-11 07:05 | NUR ---
RADIOLOGY AT BEDSIDE
[2023-01-11] MEDS ORDERED: HYDR-1093 PO (07:10)
--- NOTE | 2023-01-11 07:30 | NUR ---
RECEIVED PT IN PAPITO, AO X 4. PT C/O LT SIDED CP, NON RADITING, SHARP IN NATURE SINCE THIS AM. PT DENIES ACTIVE CP AT THIS TIME. NSR ON MONITOR. NO ACUTE DISTRESS. SAFETY MAINTAINED.
[2023-01-11 07:44] LABS: BASOPHILS % (AUTO) 0.6 % (0.0-2.0); EOSINOPHILS # (AUTO) 0.4 K/uL (0-0.4); EOSINOPHILS % (AUTO) 7.6 % (0.0-4.0); HEMATOCRIT 42.5 % (36-52); HEMOGLOBIN 14.1 g/dL (12.0-18.0); LYMPHOCYTES # (AUTO) 1.6 K/uL (2.0-11.5); LYMPHOCYTES % (AUTO) 27.5 % (20.5-51.1); MEAN CORPUSCULAR HEMOGLOBIN 29 pg (27-31); MEAN CORPUSCULAR HGB CONC 33 g/dL (33-37); MEAN CORPUSCULAR VOLUME 86.1 fL (80-94); MONOCYTES # (AUTO) 0.4 K/uL (0.8-1.0); NEUTROPHILS # (AUTO) 3.3 K/uL (1.8-7.7); NEUTROPHILS % (AUTO) 57.3 % (42.2-75.2); PLATELET COUNT (AUTO) 177 K/uL (140-450); RED BLOOD CELL COUNT(AUTO) 4.94 MIL/uL (4.20-6.10); WHITE BLOOD COUNT (AUTO) 5.8 K/uL (4.8-10.8)
[2023-01-11 08:03] LABS: ALBUMIN 3.8 g/dL (3.4-5.0); ANION GAP 10.4 (8-16); CARBON DIOXIDE 27.2 mmol/L (21-32); CREATININE 0.7 mg/dL (0.6-1.3); POTASSIUM 3.6 mmol/L (3.5-5.1); TOTAL BILIRUBIN 0.5 mg/dL (0.0-1.0)
[2023-01-11 09:14] VITALS: BP 120/82
--- NOTE | 2023-01-11 09:17 | NUR ---
The patient's care was reviewed and supervised by ED Agency Nurse 8, RN, RN.
--- NOTE | 2023-01-11 09:17 | NUR ---
Patient discharged with v/s stable. Written and verbal after care instructions given and explained. Patient alert, oriented and verbalized understanding of instructions. Ambulatory with steady gait. All questions addressed prior to discharge. ID band removed. Patient advised to follow up with PMD. Rx of HYDROXYZINE HCI given. Patient educated on indication of medication including possible reaction and side effects. Opportunity to ask questions provided and answered.
== END 2023-01-11 09:14 | disposition home or self-care (01) ==
LOC: MED 06:27
DX: R07.9 Chest pain, unspecified (principal); F41.9 Anxiety disorder, unspecified; E11.9 Type 2 diabetes mellitus without complications; I10 Essential (primary) hypertension; E78.5 Hyperlipidemia, unspecified; Z79.899 Other long term (current) drug therapy; Z79.1 Long term (current) use of non-steroidal anti-inflammatories (NSAID)
CPT/HCPCS: 36415; 71045; 80053; 83880; 84484; 85025; 85379; 93005; 99285

== ENCOUNTER 2024-07-09 22:15 | Emergency (ER) | payer MEDICAID ==
[~2024-07-09] VITALS: Ht 182.9 cm; Wt 90.7 kg
[~2024-07-09 22:15] MED LIST changes: +HYDR-1093 PO
[2024-07-09 22:18] VITALS: BP 120/79; PULSE 68; RESP 18; TEMP 98.6; O2SAT 99
[2024-07-09 22:21] VITALS: O2SAT 98
[2024-07-09] MEDS: NACL 0.9% 1,000 ML IV ONE (22:51)
[2024-07-09 22:52] LABS: BASOPHILS % (AUTO) 0.5 % (0.0-2.0); EOSINOPHILS # (AUTO) 0.7 K/uL (0-0.4); EOSINOPHILS % (AUTO) 10.1 % (0.0-4.0); HEMATOCRIT 42.6 % (36-52); HEMOGLOBIN 14.2 g/dL (12.0-18.0); LYMPHOCYTES # (AUTO) 2.4 K/uL (2.0-11.5); LYMPHOCYTES % (AUTO) 37.5 % (20.5-51.1); MEAN CORPUSCULAR HEMOGLOBIN 29 pg (27-31); MEAN CORPUSCULAR HGB CONC 33 g/dL (33-37); MEAN CORPUSCULAR VOLUME 85.6 fL (80-94); MONOCYTES # (AUTO) 0.5 K/uL (0.8-1.0); NEUTROPHILS # (AUTO) 2.8 K/uL (1.8-7.7); NEUTROPHILS % (AUTO) 43.9 % (42.2-75.2); PLATELET COUNT (AUTO) 172 K/uL (140-450); RED BLOOD CELL COUNT(AUTO) 4.97 MIL/uL (4.20-6.10); RED CELL DISTRIBUTION WIDTH 12.7 % (11.6-13.7); WHITE BLOOD COUNT (AUTO) 6.5 K/uL (4.8-10.8)
[2024-07-09 23:04] LABS: ANION GAP 7.2 (8-16); CALCIUM 9.1 mg/dL (8.5-10.1); CARBON DIOXIDE 32.7 mmol/L (21-32); CREATININE 0.9 mg/dL (0.6-1.3); POTASSIUM 3.9 mmol/L (3.5-5.1)
[2024-07-09] MEDS: INSULIN REGULAR, HUMAN 100 UNIT/ML VIAL IVP ONE (23:28)
[2024-07-09 23:50] VITALS: BP 104/68; PULSE 78; RESP 14; TEMP 98.2; O2SAT 98
== END 2024-07-09 23:50 | disposition home or self-care (01) ==
LOC: MED 22:15
DX: E11.65 Type 2 diabetes mellitus with hyperglycemia (principal); I10 Essential (primary) hypertension; Z79.899 Other long term (current) drug therapy
CPT/HCPCS: 36415; 80048; 82948; 85025; 96361; 96374; 99283; J1815; J7030